=== PATIENT | male | born 1965 | race Asian ===

== ENCOUNTER 2020-08-18 11:54 | Day surgery (SDC) | payer MEDICAID ==
[2020-08-16 11:37] LABS: COVID AG,FIA SOURCE NASOPHARYNGEAL
[~2020-08-18] VITALS: Ht 165.1 cm; Wt 70.9 kg
[~2020-08-18 11:54] MED LIST: ATOR40TA71 PO; LISI20TA24 PO; METF-446 PO; SODIUM CHLORIDE 0.9% 1,000 ML IV ONE; SODIUM CHLORIDE 0.9% 1,000 ML ONE; TERB250 PO
[2020-08-18] MEDS ORDERED: LIDOCAINE/PF 2% 5 ML VIAL IM ONE (11:55)
[2020-08-18] MEDS ORDERED: PROPOFOL 1% 20 ML VIAL IVP ONE (11:55)
[2020-08-18 12:56] LABS: GLUCOMETER DEV NAME(LOC) SDS.; GLUCOSE,POINT OF CARE 78 MG/DL (70-110)
== END 2020-08-18 14:55 | disposition home or self-care (01) ==
LOC: SURGERY 11:54
PROVIDERS: ATTEND Internal Medicine Gastroenterology
DX: Z12.11 Encounter for screening for malignant neoplasm of colon (principal); D12.2 Benign neoplasm of ascending colon; K64.2 Third degree hemorrhoids; I10 Essential (primary) hypertension; E78.5 Hyperlipidemia, unspecified; E11.9 Type 2 diabetes mellitus without complications; Z83.3 Family history of diabetes mellitus; Z82.49 Family history of ischemic heart disease and other diseases of the circulatory system; Z98.890 Other specified postprocedural states; Z79.899 Other long term (current) drug therapy
CPT/HCPCS: 45385; 82962; 87426; 88305; C1769; C9803; J2704; J3490; J7030